=== PATIENT | female | born 1975 | race Caucasian/White ===

== ENCOUNTER 2016-03-16 06:30 | Observation (INO) | payer MEDICAID ==
[2016-03-09 08:30] VITALS: Ht 160 cm; Wt 84.8 kg
[~2016-03-16] VITALS: Ht 160 cm; Wt 84.8 kg
[2016-03-16] VITALS (21 sets, daily range): BP systolic 76–132; RESP 12–22; TEMP 97–99.4
[2016-03-16] MEDS ORDERED: CEFAZOLIN 2,000 MG in SODIUM CHLORIDE 0.9% 100 ML IV ONE (06:55)
[2016-03-16] MEDS ORDERED: SCOPOLAMINE PATCH TRANSDERM ONE (07:05)
[2016-03-16] MEDS ORDERED: LACT RINGERS 1,000 ML IV SCH (07:05)
[2016-03-16] MEDS ORDERED: GLYCOPYRROLATE 0.2 MG/ML VIAL IV ONE ×2 (07:05→14:02)
[2016-03-16] MEDS ORDERED: LIDOCAINE 1% BUFFERED 1 ML SYR INTRADERM PRN (07:05)
[2016-03-16] MEDS ORDERED: MIDAZOLAM 2 MG/2 ML INJ IV ONE (07:05)
[2016-03-16] MEDS ORDERED: ONDANSETRON 4 MG VIAL IV PRN ×2 (08:45→10:10)
[2016-03-16] MEDS ORDERED: OXYCODONE 5 MG TAB PO PRN (08:45)
[2016-03-16] MEDS ORDERED: MORPHINE 2 MG/ML SYR IV PRN (08:45)
[2016-03-16] MEDS ORDERED: MORPHINE 4 MG/ML SYR IV PRN (08:45)
[2016-03-16] MEDS ORDERED: MEPERIDINE 25 MG/ML IV PRN (08:45)
[2016-03-16] MEDS ORDERED: BISACODYL 10 MG SUPP RECTAL PRN (10:10)
[2016-03-16] MEDS ORDERED: KETOROLAC 30 MG/ML VIAL IV PRN (10:10)
[2016-03-16] MEDS ORDERED: OXYCODONE/APAP 5/325 TAB PO PRN (10:10)
[2016-03-16] MEDS ORDERED: PROMETHAZINE 25 MG/ML VIAL IM/IV PRN (10:10)
[2016-03-16] MEDS ORDERED: ZOLPIDEM 5 MG TAB PO PRN (10:10)
[2016-03-16] MEDS ORDERED: MORPHINE 50 MG/50 ML PCA BAG IV SCH (10:10)
[2016-03-16] MEDS ORDERED: DILAUDID 1 MG/ML AMP ONE (10:12)
[2016-03-16] MEDS: DILAUDID 1 MG/ML AMP IV PRN ×3 (10:31→10:59)
[2016-03-16] MEDS: LACT RINGERS 1,000 ML IV SCH ×2 (12:34→19:35)
[2016-03-16] MEDS ORDERED: NEOSTIGMINE 10 MG/10 ML VIAL IV ONE (14:02)
[2016-03-16] MEDS ORDERED: ROCURONIUM 50 MG VIAL IV ONE (14:02)
[2016-03-16] MEDS ORDERED: ESTROGEN VAG CR 30 GM VAG ONE (14:02)
[2016-03-16] MEDS ORDERED: FENTANYL 100 MCG/2 ML AMP IV ONE (14:02)
[2016-03-16] MEDS ORDERED: PROPOFOL 50ML VIAL IV ONE (14:02)
[2016-03-16] MEDS ORDERED: ONDANSETRON 4 MG VIAL IV PUSH ONE (14:02)
[2016-03-16] MEDS ORDERED: LIDOCAINE 2% SYR 5 ML IV ONE (14:02)
[2016-03-16] MEDS ORDERED: VASOPRESSIN 20 UNITS/ML VIAL IV ONE (14:02)
[2016-03-16] MEDS ORDERED: ACETAMINOPHEN 1,000 MG/100 ML IV ONE (14:02)
[2016-03-16] MEDS ORDERED: MISSING DOSE XX ONE (16:30)
[2016-03-16] MEDS: CEFAZOLIN 2,000 MG in SODIUM CHLORIDE 0.9% 100 ML IV SCH ×2 (16:49→23:29)
[2016-03-16] MEDS ORDERED: DOCUSATE SOD 100 MG CAP PO ONE (21:00)
[2016-03-17 03:55] VITALS: BP_SYST 111; RESP 18; TEMP 98.1
[2016-03-17] MEDS ORDERED: REMOVE SCOPALAMINE PATCH XX ONE (07:17)
[2016-03-17 07:40] VITALS: BP_SYST 89; RESP 18; TEMP 98.7
[2016-03-17] MEDS: LACT RINGERS 1,000 ML IV SCH (10:55)
[2016-03-17 12:19] VITALS: BP_SYST 89; RESP 18; TEMP 98.7
== END 2016-03-17 14:30 | disposition home or self-care (01) ==
LOC: OSEC 06:30 → SDS 10:09 → ENPENDDIS 10:09 → 3S 12:01
PROVIDERS: ADMIT Obstetrics & Gynecology; ATTEND Obstetrics & Gynecology
DX: N81.4 Uterovaginal prolapse, unspecified (principal); F17.210 Nicotine dependence, cigarettes, uncomplicated; N18.3 Chronic kidney disease, stage 3 (moderate); Z79.899 Other long term (current) drug therapy
CPT/HCPCS: 36415; 80048; 81025; 85025; 88305; 88307; 94762; 94799